=== PATIENT | male | born 1970 | race Caucasian/White ===

== ENCOUNTER 2023-08-02 20:53 | Inpatient (IN) | payer OTHER ==
[2023-08-02] MEDS ORDERED: ACETAMINOPHEN 500 MG TABLET (FP) PO ONE (21:11)
[2023-08-02] MEDS ORDERED: IBUPROFEN 600 MG TABLET (FP) PO ONE ×2 (21:11→21:56)
[2023-08-02] MEDS ORDERED: AZITHROMYCIN IVPB 500 MG in DEXTROSE 5%-WATER - 250 ML IVPB ONE (21:45)
[2023-08-02] MEDS ORDERED: CEFTRIAXONE 1,000 MG in DEXTROSE 5%-WATER - 50 ML IVPB ONE (21:45)
[2023-08-02] MEDS ORDERED: SODIUM CHLORIDE 0.9% 500 ML INFUS.BAG IV ONE (21:46)
[2023-08-02] MEDS ORDERED: CEFTRIAXONE 1 GM/50 ML BAG ONE (21:57)
[2023-08-02] MEDS ORDERED: AZITHROMYCIN IVPB 500 MG/250 ML BAG IVPB ONE (21:57)
[2023-08-02] MEDS ORDERED: ACETAMINOPHEN 500 MG TABLET (FP) ONE (21:59)
[2023-08-02 22:29] LABS: BASO % 0.4 % (0-2.0); HEMATOCRIT 42.1 % (35.4-49); HEMOGLOBIN 13.9 GM/dL (11.7-16.9); LYMPH % 11.6 % (8-40); MCH 27.7 pg (25.7-33.7); MEAN CELL VOLUME 84.1 fl (80-96); MEAN PLT VOLUME 9.5 fl (7.5-11.1); MONO % 19.7 % (3.8-10.2); NEUT % 68.3 % (42.8-82.8); PLATELET COUNT 230 10^3/uL (134-434); RDW 13.5 % (11.9-15.9); WHITE BLOOD COUNT 8.1 K/mm3 (4.0-10.0)
[2023-08-02 22:49] LABS: ALBUMIN 2.8 g/dl (3.4-5.0); CALCIUM 7.8 mg/dL (8.5-10.1)
[2023-08-02 22:50] LABS: BLOOD UREA NITROGEN 8.2 mg/dL (7-18)
[2023-08-02 22:52] LABS: CREATININE 1.1 mg/dL (0.55-1.3)
[2023-08-02 22:55] LABS: BILIRUBIN,TOTAL 0.6 mg/dL (0.2-1); TOT PROT 6.8 g/dl (6.4-8.2)
[2023-08-03] MEDS ORDERED: ACETAMINOPHEN 1000 MG/100 ML BAG IVPB PRN (00:50)
[2023-08-03] MEDS ORDERED: SODIUM CHLORIDE 1,000 ML IV SCH (01:00)
[2023-08-03 08:14] LABS: HEMATOCRIT 39.1 % (35.4-49); HEMOGLOBIN 13.1 GM/dL (11.7-16.9); MCH 27.9 pg (25.7-33.7); MCHC 33.4 g/dl (32.0-35.9); MEAN CELL VOLUME 83.3 fl (80-96); MEAN PLT VOLUME 9.9 fl (7.5-11.1); PLATELET COUNT 192 10^3/uL (134-434); RBC 4.69 M/mm3 (4.00-5.60); RDW 13.4 % (11.9-15.9); WHITE BLOOD COUNT 7.3 K/mm3 (4.0-10.0)
[2023-08-03 08:28] LABS: POTASSIUM 3.6 mmol/L (3.5-5.1)
[2023-08-03 08:54] LABS: ALBUMIN 2.3 g/dl (3.4-5.0); BLOOD UREA NITROGEN 8.1 mg/dL (7-18); CALCIUM 7.5 mg/dL (8.5-10.1); MAGNESIUM 2.2 mg/dL (1.8-2.4)
[2023-08-03 08:58] LABS: ANISOCYTOSIS 0; BILIRUBIN,TOTAL 0.8 mg/dL (0.2-1); HELMET CELLS 0; HOWELL-JOLLY BODIES 0; MACROCYTOSIS 0; OVALOCYTE 0; PHOSPHOROUS 2.8 mg/dL (2.5-4.9); ROULEAU 0; SICKELED CELLS 0; TARGET CELLS 0; TEAR DROP CELLS 0; TOXIC GRANULATION 0
[2023-08-03 08:59] LABS: TOT PROT 5.8 g/dl (6.4-8.2)
[2023-08-03] MEDS: ENOXAPARIN NA (PORCINE) 40 MG/0.4 ML DISP.SYRIN SQ SCH (09:47)
[2023-08-03] MEDS: LOSARTAN POTASSIUM 50 MG TABLET PO SCH (09:48)
[2023-08-03] MEDS: ZINC SULFATE 220 MG CAPSULE (FP) PO SCH (09:48)
[2023-08-03] MEDS: CEFTRIAXONE 1 GM in DEXTROSE 5%-WATER - 50 ML IVPB SCH (09:48)
[2023-08-03] MEDS: ASCORBIC ACID 250 MG TABLET (FP) PO SCH (09:48)
[2023-08-03] MEDS: AZITHROMYCIN IVPB 250 MG in DEXTROSE 5%-WATER - 250 ML IVPB SCH (10:57)
[2023-08-03] MEDS: OSELTAMIVIR PHOSPHATE 75 MG CAPSULE PO SCH ×2 (11:27→21:26)
[2023-08-03 12:33] VITALS: BMI 26.6
[2023-08-03] MEDS ORDERED: guaiFENesin 200 MG/10 ML 10 ML UNIT-DOSE CUPS PO ONE (14:46)
[2023-08-04 08:21] LABS: HEMATOCRIT 38.2 % (35.4-49); HEMOGLOBIN 12.8 GM/dL (11.7-16.9); MCH 28.3 pg (25.7-33.7); MCHC 33.6 g/dl (32.0-35.9); MEAN CELL VOLUME 84.2 fl (80-96); MEAN PLT VOLUME 9.3 fl (7.5-11.1); PLATELET COUNT 206 10^3/uL (134-434); RBC 4.53 M/mm3 (4.00-5.60); RDW 13.4 % (11.9-15.9); WHITE BLOOD COUNT 7.8 K/mm3 (4.0-10.0)
[2023-08-04 08:44] LABS: POTASSIUM 4.1 mmol/L (3.5-5.1)
[2023-08-04 09:01] LABS: CALCIUM 8.1 mg/dL (8.5-10.1)
[2023-08-04 09:03] LABS: ALBUMIN 2.3 g/dl (3.4-5.0); BLOOD UREA NITROGEN 6.9 mg/dL (7-18)
[2023-08-04 09:06] LABS: BILIRUBIN,TOTAL 0.6 mg/dL (0.2-1); CREATININE 0.8 mg/dL (0.55-1.3); TOT PROT 6.1 g/dl (6.4-8.2)
[2023-08-04] MEDS: CEFTRIAXONE 1 GM in DEXTROSE 5%-WATER - 50 ML IVPB SCH (10:25)
[2023-08-04] MEDS: LOSARTAN POTASSIUM 50 MG TABLET PO SCH (10:26)
[2023-08-04] MEDS: OSELTAMIVIR PHOSPHATE 75 MG CAPSULE PO SCH ×2 (10:26→21:27)
[2023-08-04] MEDS: ZINC SULFATE 220 MG CAPSULE (FP) PO SCH (10:26)
[2023-08-04] MEDS: ASCORBIC ACID 250 MG TABLET (FP) PO SCH (10:26)
[2023-08-04] MEDS: ENOXAPARIN NA (PORCINE) 40 MG/0.4 ML DISP.SYRIN SQ SCH (10:27)
[2023-08-04] MEDS: AZITHROMYCIN IVPB 250 MG in DEXTROSE 5%-WATER - 250 ML IVPB SCH (11:46)
[2023-08-05 08:30] LABS: HEMATOCRIT 38.4 % (35.4-49); MCH 28.5 pg (25.7-33.7); MEAN CELL VOLUME 83.8 fl (80-96); MEAN PLT VOLUME 10.2 fl (7.5-11.1); PLATELET COUNT 242 10^3/uL (134-434); RBC 4.58 M/mm3 (4.00-5.60); RDW 13.4 % (11.9-15.9); WHITE BLOOD COUNT 6.7 K/mm3 (4.0-10.0)
[2023-08-05 08:53] LABS: POTASSIUM 4.1 mmol/L (3.5-5.1)
[2023-08-05 08:59] LABS: ALBUMIN 2.4 g/dl (3.4-5.0); BLOOD UREA NITROGEN 6.7 mg/dL (7-18); CALCIUM 8.1 mg/dL (8.5-10.1); MAGNESIUM 2.2 mg/dL (1.8-2.4)
[2023-08-05 09:03] LABS: CREATININE 0.8 mg/dL (0.55-1.3); PHOSPHOROUS 3.4 mg/dL (2.5-4.9)
[2023-08-05 09:04] LABS: BILIRUBIN,TOTAL 0.8 mg/dL (0.2-1); TOT PROT 6.3 g/dl (6.4-8.2)
[2023-08-05] MEDS: LOSARTAN POTASSIUM 50 MG TABLET PO SCH (10:34)
[2023-08-05] MEDS: ZINC SULFATE 220 MG CAPSULE (FP) PO SCH (10:34)
[2023-08-05] MEDS: CEFTRIAXONE 1 GM in DEXTROSE 5%-WATER - 50 ML IVPB SCH (10:35)
[2023-08-05] MEDS: ASCORBIC ACID 250 MG TABLET (FP) PO SCH (10:35)
[2023-08-05] MEDS: OSELTAMIVIR PHOSPHATE 75 MG CAPSULE PO SCH (10:35)
[2023-08-05] MEDS: ENOXAPARIN NA (PORCINE) 40 MG/0.4 ML DISP.SYRIN SQ SCH (10:35)
[2023-08-05] MEDS: AZITHROMYCIN IVPB 250 MG in DEXTROSE 5%-WATER - 250 ML IVPB SCH (11:20)
[2023-08-05 12:21] VITALS: TEMP 97.9
[2023-08-05 15:16] VITALS: BP 136/78; PULSE 80; RESP 19
== END 2023-08-05 16:55 | disposition home or self-care (01) | DRG 195 ==
LOC: JER 20:53 → JERBED 22:31 → INTOOBSV 22:31 → J7W 08-03 03:30 → OBSVTOIN 08-04 11:21
PROVIDERS: ADMIT Internal Medicine; ATTEND Internal Medicine
DX: J10.08 Influenza due to other identified influenza virus with other specified pneumonia (principal); I10 Essential (primary) hypertension
CPT/HCPCS: 0241U-QW; 36415; 71045-TC-FY; 80053; 83615; 83735; 84100; 85025; 85027; 87040; 87899; 93005; 93010; 94761; 99285-25; G0378